=== PATIENT | male | born 1965 | race Two or more races ===

== ENCOUNTER 2020-04-16 16:45 | Emergency (ER) | payer OTHER ==
[~2020-04-16] VITALS: Ht 175.3 cm; Wt 95.3 kg
[2020-04-16] MEDS ORDERED: TDAP DIPH,PERTUSS,TET VAC/PF 0.5 ML DISP.SYRIN IM ONE ×2 (17:15→17:31)
[2020-04-16] MEDS ORDERED: BACITRACIN ZINC OINT 15 GM TUBE TOP ONE (17:15)
[2020-04-16] MEDS ORDERED: BACITRACIN ZINC OINT 15 GM TUBE ONE (17:30)
--- NOTE | 2020-04-16 17:36 | NUR ---
PT IS IN ROOM #2A. DR JHA EVALUATED THE PT.
--- NOTE | 2020-04-16 17:59 | NUR ---
PT WAS D/C'd TO HOME. D/C INSTRUCTIONS GIVEN TO THE PT BY DR JHA.
[2020-04-16 18:00] VITALS: BP 145/81
== END 2020-04-16 17:59 | disposition home or self-care (01) ==
LOC: ER 16:47
DX: T24.201A Burn of second degree of unspecified site of right lower limb, except ankle and foot, initial encounter (principal); T31.0 Burns involving less than 10% of body surface; X06.2XXA Exposure to ignition of other clothing and apparel, initial encounter; Y93.89 Activity, other specified; Y92.039 Unspecified place in apartment as the place of occurrence of the external cause
CPT/HCPCS: 90715; A4663